=== PATIENT | female | born 1965 | race Caucasian/White ===

== ENCOUNTER 2019-04-16 20:55 | Emergency (ER) | payer MEDICAID ==
[~2019-04-16] VITALS: Ht 162.6 cm; Wt 86.4 kg
[2019-04-16 21:00] VITALS: BP 155/80
[2019-04-16] MEDS ORDERED: OXYMETAZOLINE HCL NASAL SPRAY 30 ML BOTTLE NS ONE ×2 (22:30→22:46)
== END 2019-04-16 23:28 | disposition home or self-care (01) ==
LOC: ER 21:01
DX: R04.0 Epistaxis (principal); I10 Essential (primary) hypertension